=== PATIENT | female | born 1975 | race Caucasian/White ===

== ENCOUNTER → 2018-02-25 | Outpatient (CLI) | payer BC ==
[~2018-02-25] MED LIST: BARIUM SUSPENSION 105% (LIQUID POLIBAR PLUS) 240 ML/DOSE PO ONE; BARIUM SUSPENSION 60% (LIQUID EZ PAQUE) 240 ML DOSE PO ONE; ONDA-42 SL; OSLT75CRX PO
--- NOTE | 2018-02-25 11:42 | Diagnostic Imaging Report ---
INDICATION: Preop for gastric sleeve procedure and reflux. TECHNIQUE: Patient ingested effervescent crystals as well as thin and thick barium and imaging of the esophagus, stomach and proximal small bowel was performed. FINDINGS: The esophagus has a smooth contour. No mass or stricture was identified. There was a very small sliding-type hiatal hernia. No significant gastroesophageal reflux was demonstrated. The stomach has normal configuration. There is prompt emptying into the small bowel. The duodenal bulb is without deformity. IMPRESSION: Small sliding-type hiatal hernia. The study is otherwise unremarkable. Dictated by: Dictated on workstation # [id number]
== END ==
LOC: RAD 08:54
PROVIDERS: ATTEND Surgery
DX: K44.9 Diaphragmatic hernia without obstruction or gangrene (principal); Z98.84 Bariatric surgery status
CPT/HCPCS: 74241

== ENCOUNTER → 2018-03-29 | Outpatient (CLI) | payer BC ==
[~2018-03-29] MED LIST changes: -BARIUM SUSPENSION 105% (LIQUID POLIBAR PLUS) 240 ML/DOSE PO ONE; -BARIUM SUSPENSION 60% (LIQUID EZ PAQUE) 240 ML DOSE PO ONE
--- NOTE | 2018-03-29 13:05 | Diagnostic Imaging Report ---
INDICATION: Remote history of fracture with ankle pain. FINDINGS: There is abnormal widening of the ankle mortise laterally. Ligamentous disruption could not be excluded. Flagler stress views may be of benefit as well as a nonemergent MRI. An unhealed fracture is not identified. The plafond and talar dome are intact. IMPRESSION: There is abnormal widening of the ankle mortise laterally with ligamentous injury not excluded. No acute bony abnormality or unhealed fracture, however, is demonstrated. Dictated by: Dictated on workstation # [id number]
== END ==
LOC: RAD 12:15
PROVIDERS: ATTEND Nurse Practitioner Community Health
DX: M25.571 Pain in right ankle and joints of right foot (principal); Z87.81 Personal history of (healed) traumatic fracture
CPT/HCPCS: 73610

== ENCOUNTER 2019-12-01 10:45 | Outpatient (CLI) | payer BC ==
[~2019-12-01] VITALS: Ht 152.4 cm; Wt 79.5 kg
[~2019-12-01 10:45] MED LIST changes: +PHEN-483 PO
== END 2019-12-01 11:03 | disposition home or self-care (01) ==
LOC: PREOP 10:45
PROVIDERS: ATTEND Specialist
DX: Z01.818 Encounter for other preprocedural examination (principal)

== ENCOUNTER 2019-12-02 08:26 | Day surgery (SDC) | payer BC ==
[~2019-12-02] VITALS: Ht 152.4 cm; Wt 79.5 kg
[2019-12-02 08:55] VITALS: BP 143/83
[2019-12-02] MEDS: TETRACAINE 0.5% OPHTH SOLN 4 ML BTL (SINGLE DOSE ONLY) OU PRN ×4 (09:00→09:23)
[2019-12-02] MEDS ORDERED: LIDOCAINE PF 1% 2 ML VIAL IR PRN (09:00)
[2019-12-02] MEDS ORDERED: MOXIFLOXACIN OPHTH SOLN 5 MG/ML 0.3 ML SYRINGE OP ONE (09:00)
[2019-12-02] MEDS ORDERED: TIMOLOL MALEATE 0.5% 5 ML (TIMOPTIC) BTL OU PRN (09:00)
[2019-12-02] MEDS ORDERED: POVIDONE (BETADINE) OPHTH SOLN 5% 30 ML OP ONE (09:00)
[2019-12-02] MEDS: CYCLOPENTOLATE 1% (CYCLOGYL) 2 ML DROPS OP SCH ×3 (09:09→09:23)
[2019-12-02] MEDS: PHENYLEPHRINE 10% OPHTH (NEO-SYN) 5 ML BTL OU SCH ×3 (09:09→09:23)
--- NOTE | 2019-12-02 09:55 | Ophthalmologist Pre-Op Note ---
Pre-Operative Progress Note H&P Reviewed The H&P was reviewed, patient examined and no changes noted. Date H&P Reviewed: Dec 02, 2019 Time H&P Reviewed: 09:55 Pre-Op Dx Cataract, Right Eye CAROL PARHAM MD Dec 02, 2019 09:55
[2019-12-02] MEDS ORDERED: acetaZOLAMIDE ER 500 MG CAP (DIAMOX SEQUELS) PO ONE (10:00)
[2019-12-02] MEDS ORDERED: MIDAZOLAM 2 MG/2 ML (VERSED) VIAL ONE (10:06)
--- NOTE | 2019-12-02 10:26 | Ophthalmology Operative Report ---
Cataract removal/placement IOL PREOPERATIVE DIAGNOSIS: Cataract Right Eye POSTOPERATIVE DIAGNOSIS: Cataract Right Eye PROCEDURE: Cataract removal and placement of posterior chamber implant, right eye SURGEON: Bennie Parham ANESTHESIA: Topical with sedation COMPLICATIONS: None ESTIMATED BLOOD LOSS: Minimal DESCRIPTION OF PROCEDURE: After proper informed consent was obtained, the patient, a 44 female, was taken to the Operating Room and the right eye was anesthetized with tetracaine. The right eye was then prepped and draped in the usual manner. A wire lid speculum was placed. A paracentesis was made at the left hand position. Preservative free lidocaine was injected into the anterior chamber followed by viscoelastic. A clear corneal incision was made in the temporal position. A capsulorrhexis was preformed and the central nuclear and cortical material were removed. The posterior capsule was polished and Shiraz 19.0 AU00T0 IOL was placed into the capsular bag. The residual viscoelastic was aspirated and balanced saline solution was injected into the anterior chamber. Moxifloxacin was injected into the anterior chamber. The wound was checked and found to be water tight. The patient tolerated the procedure well without complications. BENNIE PARHAM MD Dec 02, 2019 10:26
[2019-12-02 10:33] VITALS: BP 132/95
--- NOTE | 2019-12-02 14:16 | Anesthesia-General Post-Op ---
MAC Patient Condition Mental Status/LOC: Same as Preop Cardiovascular: Satisfactory Nausea/Vomiting: Absent Respiratory: Satisfactory Pain: Controlled Complications: Absent Post Op Complications Complications None Follow Up Care/Instructions Patient Instructions None needed. Anesthesiology Discharge Order Discharge Order Patient is doing well, no complaints, stable vital signs, no apparent adverse anesthesia problems. No complications reported per nursing. LAZARO PRINCE CRNA Dec 02, 2019 14:16
== END 2019-12-02 10:32 | disposition home or self-care (01) ==
LOC: SDC 08:26
PROVIDERS: ATTEND Specialist
DX: H25.11 Age-related nuclear cataract, right eye (principal); F41.9 Anxiety disorder, unspecified; Z79.899 Other long term (current) drug therapy; Z90.710 Acquired absence of both cervix and uterus; Z83.3 Family history of diabetes mellitus; Z80.1 Family history of malignant neoplasm of trachea, bronchus and lung

== ENCOUNTER → 2021-04-16 | Outpatient (CLI) | payer BC ==
--- NOTE | 2021-04-16 11:21 | Diagnostic Imaging Report ---
PROCEDURE: MRI left joint lower extremity without contrast. TECHNIQUE: Multiplanar, multisequence non contrast-enhanced MRI of the left lower extremity was accomplished. INDICATION: Fell knee pain There are no prior studies available for comparison. This exam is less than optimal due to mild motion artifact. The proton sagittal series reveals that the anterior cruciate ligament is poorly visualized. I suspect the ACL is at least partially if not completely torn. Posterior cruciate ligament, quadriceps and infrapatellar tendons, the collateral ligaments, the biceps femoris tendon and iliotibial band of the medial and lateral retinaculum show no sign of an acute injury. There is increased signal in the posterior horn of the medial meniscus. This does suggest a tear. The lateral meniscus seems intact. There is no abnormal signal arising from the osseous structures to suggest bone edema or fracture. There does appear to be moderate degenerative disease of all 3 compartments of the knee joint. There is a small joint effusion present and there is also mild edema/inflammation of the soft tissues along the anterior aspect of the knee joint. A small Arshad's cyst is noted as well. Impression: 1. The indistinct appearance of the anterior cruciate ligament would indicate that the ACL is at least partially if not completely torn. The posterior horn of the medial meniscus is also torn. 2. The other major ligaments and tendons and the lateral meniscus show no sign of an acute injury. 3. There is no evidence for a fracture. There is moderate degenerative disease of all 3 compartments of the knee joint. 4. There is a small joint effusion present as well as edema/inflammation along the anterior aspect of the knee joint. Dictated by: Dictated on workstation # [id number]
== END ==
LOC: RAD 08:18
PROVIDERS: ATTEND Family Medicine
DX: S83.242A Other tear of medial meniscus, current injury, left knee, initial encounter (principal); M17.12 Unilateral primary osteoarthritis, left knee; W19.XXXA Unspecified fall, initial encounter
CPT/HCPCS: 73721

== ENCOUNTER → 2021-05-23 | Outpatient (CLI) | payer BC ==
[~2021-05-23] VITALS: Ht 180.3 cm; Wt 88.5 kg
[~2021-05-23] MED LIST changes: +CASIRIVIMAB/IMDEVIMAB 1,200 MG in NS (IVPB) 250 ML IV ONE; +EPINEPHrine INJECTION 1 MG/ML AMP IM PRN; +diphenhydrAMINE 50 MG/ML INJ (BENADRYL) IV PRN
[2021-05-23 08:59] VITALS: BP 153/83
[2021-05-23 10:28] VITALS: BP 129/70
== END ==
LOC: INFUSION 09:02
PROVIDERS: ATTEND Nurse Practitioner Family
DX: Z23 Encounter for immunization (principal); U07.1 COVID-19

== ENCOUNTER 2022-02-28 11:15 | Emergency (ER) | payer BC ==
[~2022-02-28] VITALS: Ht 152.4 cm; Wt 92.9 kg
[~2022-02-28 11:15] MED LIST changes: -CASIRIVIMAB/IMDEVIMAB 1,200 MG in NS (IVPB) 250 ML IV ONE; -EPINEPHrine INJECTION 1 MG/ML AMP IM PRN; -diphenhydrAMINE 50 MG/ML INJ (BENADRYL) IV PRN
[2022-02-28 11:37] LABS: BASOPHILS % (AUTO) 1 % (0-10); EOSINOPHILS # (AUTO) 0.1 10^3/uL (0.0-0.3); EOSINOPHILS % (AUTO) 2 % (0-10); HEMATOCRIT 46 % (35-52); HEMOGLOBIN 15.1 g/dL (11.5-16.0); LYMPHOCYTES # (AUTO) 2.6 10^3/uL (1.0-4.0); LYMPHOCYTES % (AUTO) 39 % (12-44); MEAN CORPUSCULAR HEMOGLOBIN 29 pg (25-34); MEAN CORPUSCULAR HGB CONC 33 g/dL (32-36); MEAN CORPUSCULAR VOLUME 89 fL (80-99); MONOCYTES # (AUTO) 0.7 10^3/uL (0.0-1.0); MONOCYTES % (AUTO) 11 % (0-12); NEUTROPHILS # (AUTO) 3.2 10^3/uL (1.8-7.8); NEUTROPHILS % (AUTO) 48 % (42-75); PLATELET COUNT 268 10^3/uL (130-400); WHITE BLOOD COUNT 6.7 10^3/uL (4.3-11.0)
--- NOTE | 2022-02-28 11:38 | ED General ---
General Chief Complaint: Cardiac/General Problems Stated Complaint: HIGH BP 220/140 Nursing Triage Note: PT AMB TO RM 5 AFTER BEING SENT BY DR BRITTON FOR FURTHER EVALUATION OF HIGH BLOOD PRESSURE. PT STATES SHES BEEN OUT OF HER LISINIPRIL FOR 3 MONTHS. STATES A FEW DAYS AGO SHE STARTED FEELING FLUSHED. STATES BP AT HOME WAS IN THE 180s. STATES WHEN SHE WENT TO URGENT CARE SHE WAS IN THE 200s. GIVEN 4 BABY ASA AND METOPROLOL AT . Source of Information: Patient Exam Limitations: No Limitations History of Present Illness Date Seen by Provider: Feb 28, 2022 Time Seen by Provider: 11:25 Initial Comments Patient is a 46-year-old female who presents to the emergency room with concerns for elevated blood pressure. Patient states that she feels flushed and not quite herself. She went to urgent care with these complaints and was sent to the emergency department for further evaluation. Reportedly the patient was given 4 baby aspirin and some metoprolol at urgent care. She tells me that she has been out of her lisinopril for about 3 months. She just "got busy". She states she is only been diagnosed with hypertension within the last year. She sees Dr. Jean-Claude Britton and the medications have been dispensed out of clinic. She occasionally has some sharp left-sided chest pains and left wrist pain that come and go at random. She is not short of breath or currently having chest pain. She denies headache visual changes. No strokelike symptoms. No problems with urination or decreased frequency. No chronic swelling in her lower extremities. She does have chronic headaches that have not changed in nature over recent weeks. No recent infectious complaints. No problems with urination or bowels. No other daily medications prescribed. She does have a family history of coronary artery disease in her mother. Patient is not a smoker. All other review of systems reviewed and negative except as stated Timing/Duration: Other (weeks) Associated Systoms: Chest Pain (occasional sharp left sided pains) Allergies and Home Medications Allergies Coded Allergies: NKANo Known Allergies (Verified Allergy, Unknown, 02/16/06) Patient Home Medication List Home Medication List Reviewed: Yes Phentermine HCl (Phentermine HCl) 37.5 Mg Capsule, 37.5 MG PO DAILY, (Reported) Entered as Reported by: ANDRY BETANCUR on 12/01/19 1041 Review of Systems Review of Systems Constitutional: see HPI EENTM: no symptoms reported Respiratory: no symptoms reported Cardiovascular: chest pain (ocasional sharp) Gastrointestinal: no symptoms reported Genitourinary: no symptoms reported Musculoskeletal: no symptoms reported Skin: no symptoms reported Psychiatric/Neurological: No Symptoms Reported All Other Systems Reviewed Negative Unless Noted: Yes Past Nxcojts-Kmbffc-Xlpuco Hx Patient Social History Tobacco Use?: No Use of E-Cig and/or Vaping dev: No Substance use?: No Alcohol Use?: No Pt feels they are or have been: No Immunizations Up To Date Influenza Vaccine Up-to-Date: No; Not Current Past Medical History Hysterectomy Reproductive Disorders: No 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 oz. 97.299403ar; 39.00 BMI Method: General Appearance: No Apparent Distress, WD/WN Eyes: Bilateral Eye Normal Inspection, Bilateral Eye PERRL, Bilateral Eye EOMI HEENT: PERRL/EOMI Neck: Full Range of Motion, Normal Inspection Respiratory: Lungs Clear, Normal Breath Sounds, No Accessory Muscle Use, No Respiratory Distress Cardiovascular: Regular Rate, Rhythm (90's), Normal Peripheral Pulses Gastrointestinal: Non Tender, Soft Extremity: Normal Inspection, Normal Range of Motion, No Pedal Edema Neurologic/Psychiatric: Alert, Oriented x3, No Motor/Sensory Deficits, Normal Mood/Affect, high reach operator II-XII Norm as Tested Skin: Normal Color, Warm/Dry Progress/Results/Core Measures Suspected Sepsis SIRS Temperature: Pulse: 94 Respiratory Rate: 17 Laboratory Tests 02/28/22 11:27: White Blood Count 6.7 Blood Pressure 207 /131 Mean: 156 Laboratory Tests 02/28/22 11:27: Creatinine 0.69, Platelet Count 268, Total Bilirubin 0.4 Results/Orders Lab Results Laboratory Tests Test 02/28/22 11:27 02/28/22 11:39 Range/Units White Blood Count 6.7 4.3-11.0 10^3/uL Red Blood Count 5.16 H 3.80-5.11 10^6/uL Hemoglobin 15.1 11.5-16.0 g/dL Hematocrit 46 35-52 % Mean Corpuscular Volume 89 80-99 fL Mean Corpuscular Hemoglobin 29 25-34 pg Mean Corpuscular Hemoglobin Concent 33 32-36 g/dL Red Cell Distribution Width 13.2 10.0-14.5 % Platelet Count 268 130-400 10^3/uL Mean Platelet Volume 9.0 9.0-12.2 fL Immature Granulocyte % (Auto) 1 % Neutrophils (%) (Auto) 48 42-75 % Lymphocytes (%) (Auto) 39 12-44 % Monocytes (%) (Auto) 11 0-12 % Eosinophils (%) (Auto) 2 0-10 % Basophils (%) (Auto) 1 0-10 % Neutrophils # (Auto) 3.2 1.8-7.8 10^3/uL Lymphocytes # (Auto) 2.6 1.0-4.0 10^3/uL Monocytes # (Auto) 0.7 0.0-1.0 10^3/uL Eosinophils # (Auto) 0.1 0.0-0.3 10^3/uL Basophils # (Auto) 0.0 0.0-0.1 10^3/uL Immature Granulocyte # (Auto) 0.0 0.0-0.1 10^3/uL Sodium Level 138 135-145 MMOL/L Potassium Level 3.9 3.6-5.0 MMOL/L Chloride Level 104 98-107 MMOL/L Carbon Dioxide Level 22 21-32 MMOL/L Anion Gap 12 5-14 MMOL/L Blood Urea Nitrogen 10 7-18 MG/DL Creatinine 0.69 0.60-1.30 MG/DL Estimat Glomerular Filtration Rate 108 BUN/Creatinine Ratio 14 Glucose Level 103 70-105 MG/DL Calcium Level 9.2 8.5-10.1 MG/DL Corrected Calcium 9.4 8.5-10.1 MG/DL Total Bilirubin 0.4 0.1-1.0 MG/DL Aspartate Amino Transf (AST/SGOT) 17 5-34 U/L Alanine Aminotransferase (ALT/SGPT) 22 0-55 U/L Alkaline Phosphatase 59 40-136 U/L Total Protein 7.2 6.4-8.2 GM/DL Albumin 3.8 3.2-4.5 GM/DL Urine Color YELLOW Urine Clarity CLEAR Urine pH 7.0 5-9 Urine Specific [place] 1.015 L 1.016-1.022 Urine Protein NEGATIVE NEGATIVE Urine Glucose (UA) NEGATIVE NEGATIVE Urine Ketones NEGATIVE NEGATIVE Urine Nitrite NEGATIVE NEGATIVE Urine Bilirubin NEGATIVE NEGATIVE Urine Urobilinogen 0.2 < = 1.0 MG/DL Urine Leukocyte Esterase 2+ H NEGATIVE Urine RBC (Auto) TRACE-I H NEGATIVE Urine RBC 0-2 /HPF Urine WBC 10-25 H /HPF Urine Squamous Epithelial Cells 10-25 H /HPF Urine Crystals YES /LPF Urine Amorphous Sediment FEW YOEL PHOSPHATE H /LPF Urine Bacteria MODERATE H /HPF Urine Casts NONE /LPF Urine Mucus SMALL H /LPF Urine Other CLUE CELLS /HPF Urine Culture Indicated YES My Orders Orders - DAVIDE CHIN MD Ed Iv/Invasive Line Start (02/28/22 11:32) Cbc With Automated Diff (02/28/22 11:32) Comprehensive Metabolic Panel (02/28/22 11:32) Ua Culture If Indicated (02/28/22 11:32) Ekg Tracing (02/28/22 11:32) Chest 1 View, Ap/Pa Only (02/28/22 11:32) Clonidine Tablet (Catapres Tablet) (02/28/22 11:45) Urine Culture (02/28/22 11:39) Medications Given in ED Current Medications Medications Dose Ordered Sig/Bina Route Start Time Stop Time Status Last Admin Dose Admin Clonidine HCl 0.1 mg ONCE ONCE PO 02/28/22 11:45 02/28/22 11:46 DC 02/28/22 11:39 0.1 MG Vital Signs/I&O 02/28/22 11:20 Temp 36.6 Pulse 94 Resp 17 B/P (MAP) 207/131 (156) Pulse Ox 98 O2 Delivery Room Air Capillary Refill : Less Than 3 Seconds Blood Pressure Mean: 156 Progress Note : Time: 12:23 Progress Note Patient reevaluated after her 0.1 mg of clonidine and screening labs, EKG and chest x-ray. Labs have been reviewed and are all within normal limits. Chest x-ray looks good. EKG is unremarkable. Patient's diastolic blood pressure is down to about 98. She feels better. I discussed with her the importance of compliance with blood pressure medications and we talked about repercussions of uncontrolled high blood pressure. I strongly encouraged her to follow-up with her primary care physician and maintain compliance with the medications. She verbalized understanding. All questions have been sought and answered. Patient is stable, improved for discharge. ECG Initial ECG Impression Date: Feb 28, 2022 Initial ECG Impression Time: 11:25 Initial ECG Rate: 90 Initial ECG Rhythm: Normal Sinus Initial ECG Intervals: Normal Initial ECG Impression: Nonspecific Changes Comment Nonspecific ST-T wave changes inferiorly, Q waves noted in lead III. No ectopy. Diagnostic Imaging Diagonstic Imaging: Xray Plain Films/CT/US/NM/MRI: chest Comments [facility]. [place], [place] NAME: PIYUSH GONZALEZ [facility] REC#: [id number] PT STATUS: REG ER : 1975 PHYSICIAN: DAIVDE CHIN MD ADMIT DATE: 02/28/22/ER Draft Date of Exam:02/28/22 CHEST 1 VIEW, AP/PA ONLY Indication: Hypertensive patient. I have no priors. Findings: Heart size within normal limits. There is some prominence of the central vascularity. No focal pulmonary consolidation, pneumonia, effusion or pneumothorax. Impression: 1. No focal infiltrate or acute pleural pathology. Normal heart size but prominence of the central venous structures. 2. No free air beneath the diaphragm. Dictated on workstation # [id number] Dict: 02/28/22 1212 Trans: 02/28/22 1214 CV [id number] Interpreted by: JUAN JOSÉ JURADO Electronically signed by: Departure Impression Primary Impression: Hypertension Qualified Codes: I10 - Essential (primary) hypertension Disposition: 01 HOME, SELF-CARE Condition: Improved Departure-Patient Inst. Decision time for Depature: 12:27 Referrals: JEAN-CLAUDE BRITTON DO (PCP/Family) Primary Care Physician Patient Instructions: High Blood Pressure in Adults Add. Discharge Instructions: Please start taking the lisinopril, 20 mg daily tomorrow. Keep a log of your blood pressures daily at random times of the day. Call your primary care doctor's office for a follow-up appointment to review these and for further blood pressure management. If you develop severe headache, chest pain, shortness of breath or any other emergent concerning symptoms please come back to the emergency department for reevaluation. Scripts Lisinopril (Lisinopril) 20 Mg Tablet 20 MG PO DAILY for 30 Days, #30 TAB Prov: DAVIDE CHIN MD 02/28/22 DAVIDE CHIN MD Feb 28, 2022 11:38
[2022-02-28 11:45] LABS: BILIRUBIN,URINE NEGATIVE (NEGATIVE); CLARITY,URINE CLEAR; COLOR,URINE YELLOW; GLUCOSE, URINE (UA) NEGATIVE (NEGATIVE); KETONES,URINE NEGATIVE (NEGATIVE); LEUKOCYTE ESTERASE ,URINE 2+ (NEGATIVE); NITRITE,URINE NEGATIVE (NEGATIVE); PROTEIN,URINE NEGATIVE (NEGATIVE)
[2022-02-28 11:45] LABS: ALBUMIN 3.8 GM/DL (3.2-4.5); POTASSIUM 3.9 MMOL/L (3.6-5.0)
[2022-02-28] MEDS ORDERED: cloNIDine 0.1 MG (CATAPRES) TAB PO ONE (11:45)
[2022-02-28 11:46] LABS: CALCIUM 9.2 MG/DL (8.5-10.1)
[2022-02-28 11:47] LABS: TOTAL PROTEIN 7.2 GM/DL (6.4-8.2)
[2022-02-28 11:49] LABS: BILIRUBIN,TOTAL 0.4 MG/DL (0.1-1.0)
[2022-02-28 11:51] LABS: CREATININE SERUM 0.69 MG/DL (0.60-1.30)
--- NOTE | 2022-02-28 12:15 | Diagnostic Imaging Report ---
Indication: Hypertensive patient. I have no priors. Findings: Heart size within normal limits. There is some prominence of the central vascularity. No focal pulmonary consolidation, pneumonia, effusion or pneumothorax. Impression: 1. No focal infiltrate or acute pleural pathology. Normal heart size but prominence of the central venous structures. 2. No free air beneath the diaphragm. Dictated by: Dictated on workstation # [id number]
[2022-02-28 12:16] LABS: AMORPHOUS SEDIMENT,UR FEW AMOR PHOSPHATE /LPF; BACTERIA,URINE MODERATE /HPF; RBC,URINE 0-2 /HPF
[2022-02-28 12:17] LABS: URINE OTHER CLUE CELLS /HPF
[2022-02-28] MEDS ORDERED: LISI20TA26 PO (12:29)
[2022-02-28 12:43] VITALS: BP 170/82
== END 2022-02-28 12:43 | disposition home or self-care (01) ==
LOC: EDUNIT# 11:15 → ER 11:16
DX: I10 Essential (primary) hypertension (principal); Z91.14 Patient's other noncompliance with medication regimen
CPT/HCPCS: 36415; 71045; 80053; 81000; 85025; 87088; 93005

== ENCOUNTER 2022-10-13 15:45 | Emergency (ER) | payer BC ==
[~2022-10-13] VITALS: Ht 152 cm; Wt 88.0 kg
[~2022-10-13 15:45] MED LIST changes: +LISI20TA26 PO
--- NOTE | 2022-10-13 16:27 | ED Abdominal Pain ---
General Chief Complaint: Abdominal/GI Problems Stated Complaint: ABD PAIN Nursing Triage Note: PT CO OF ABD PAIN STARTED APPROX 1 HOUR AGO. PT CO OF NAUSEA. Source of Information: Patient Exam Limitations: No Limitations History of Present Illness Date Seen by Provider: Oct 13, 2022 Time Seen by Provider: 16:25 Initial Comments To ER with sudden onset right-sided lower abdominal pain that began 1 hour ago associated with nausea and vomiting. The pain has subsequently eased currently rated at 4 out of 10 though still present and it is waxing and waning in intensity. Timing/Duration: 1 Hour Severity/Quality: Moderate Location: RLQ Radiation: No Radiation Activities at Onset: None Associated Symptoms: Nausea/Vomiting Allergies and Home Medications Allergies Coded Allergies: NKANo Known Allergies (Verified Allergy, Unknown, 02/16/06) Patient Home Medication List Home Medication List Reviewed: Yes Cephalexin (Cephalexin) 500 Mg Tablet, 500 MG PO TID Prescribed by: CARLOS DELGADILLO on 10/13/22 1710 Lisinopril (Lisinopril) 20 Mg Tablet, 20 MG PO DAILY Prescribed by: DAVIDE CHIN on 02/28/22 1229 Phentermine HCl (Phentermine HCl) 37.5 Mg Capsule, 37.5 MG PO DAILY, (Reported) Entered as Reported by: ANDRY BETANCUR on 12/01/19 1045 Review of Systems Review of Systems Constitutional: see HPI EENTM: No Symptoms Reported Respiratory: No Symptoms Reported Cardiovascular: No Symptoms Reported Gastrointestinal: See HPI, Abdominal Pain, Nausea Genitourinary: No Symptoms Reported Musculoskeletal: no symptoms reported Skin: no symptoms reported Psychiatric/Neurological: No Symptoms Reported Endocrine: No Symptoms Reported Hematologic/Lymphatic: No Symptoms Reported Past Bflorsp-Fijoyo-Sejfpu Hx Patient Social History Tobacco Use?: No Substance use?: No Alcohol Use?: No Pt feels they are or have been: No Immunizations Up To Date Influenza Vaccine Up-to-Date: No; Not Current Past Medical History Surgery/Hospitalization HX: HYST, R EYE CATERACT, NOSE HTN Hysterectomy 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 oz. 97.915896bm; 38.00 BMI Method: General Appearance: WD/WN, no apparent distress HEENT: PERRL/EOMI, normal ENT inspection Neck: non-tender, full range of motion Respiratory: no respiratory distress, no accessory muscle use Cardiovascular: regular rate, rhythm, no murmur Gastrointestinal: normal bowel sounds, soft, tenderness Extremities: normal range of motion, non-tender Neurologic/Psychiatric: alert, normal mood/affect, oriented x 3 Skin: normal color, warm/dry Progress/Results/Core Measures Results/Orders Lab Results Laboratory Tests Test 10/13/22 16:24 10/13/22 16:38 Range/Units White Blood Count 9.6 4.3-11.0 10^3/uL Red Blood Count 4.62 3.80-5.11 10^6/uL Hemoglobin 13.8 11.5-16.0 g/dL Hematocrit 42 35-52 % Mean Corpuscular Volume 91 80-99 fL Mean Corpuscular Hemoglobin 30 25-34 pg Mean Corpuscular Hemoglobin Concent 33 32-36 g/dL Red Cell Distribution Width 14.8 H 10.0-14.5 % Platelet Count 286 130-400 10^3/uL Mean Platelet Volume 8.7 L 9.0-12.2 fL Immature Granulocyte % (Auto) 0 % Neutrophils (%) (Auto) 62 42-75 % Lymphocytes (%) (Auto) 30 12-44 % Monocytes (%) (Auto) 6 0-12 % Eosinophils (%) (Auto) 1 0-10 % Basophils (%) (Auto) 0 0-10 % Neutrophils # (Auto) 6.0 1.8-7.8 10^3/uL Lymphocytes # (Auto) 2.9 1.0-4.0 10^3/uL Monocytes # (Auto) 0.6 0.0-1.0 10^3/uL Eosinophils # (Auto) 0.1 0.0-0.3 10^3/uL Basophils # (Auto) 0.0 0.0-0.1 10^3/uL Immature Granulocyte # (Auto) 0.0 0.0-0.1 10^3/uL Sodium Level 137 135-145 MMOL/L Potassium Level 4.0 3.6-5.0 MMOL/L Chloride Level 106 98-107 MMOL/L Carbon Dioxide Level 24 21-32 MMOL/L Anion Gap 7 5-14 MMOL/L Blood Urea Nitrogen 17 7-18 MG/DL Creatinine 0.82 0.60-1.30 MG/DL Estimat Glomerular Filtration Rate 89 BUN/Creatinine Ratio 21 Glucose Level 86 70-105 MG/DL Calcium Level 9.0 8.5-10.1 MG/DL Corrected Calcium 9.2 8.5-10.1 MG/DL Total Bilirubin 0.3 0.1-1.0 MG/DL Aspartate Amino Transf (AST/SGOT) 16 5-34 U/L Alanine Aminotransferase (ALT/SGPT) 14 0-55 U/L Alkaline Phosphatase 41 40-136 U/L Total Protein 6.8 6.4-8.2 GM/DL Albumin 3.8 3.2-4.5 GM/DL Urine Color YELLOW Urine Clarity CLOUDY Urine pH 6.5 5-9 Urine Specific [place] 1.025 H 1.016-1.022 Urine Protein NEGATIVE NEGATIVE Urine Glucose (UA) NEGATIVE NEGATIVE Urine Ketones TRACE H NEGATIVE Urine Nitrite NEGATIVE NEGATIVE Urine Bilirubin NEGATIVE NEGATIVE Urine Urobilinogen 0.2 < = 1.0 MG/DL Urine Leukocyte Esterase 1+ H NEGATIVE Urine RBC (Auto) NEGATIVE NEGATIVE Urine RBC NONE /HPF Urine WBC 2-5 /HPF Urine Squamous Epithelial Cells 0-2 /HPF Urine Renal Epithelial Cells NONE /HPF Urine Crystals NONE /LPF Urine Bacteria LARGE H /HPF Urine Casts NONE /LPF Urine Mucus NEGATIVE /LPF Urine Culture Indicated YES My Orders Orders - CARLOS DELGADILLO APRN Cbc With Automated Diff (10/13/22 16:23) Comprehensive Metabolic Panel (10/13/22 16:23) Ua Culture If Indicated (10/13/22 16:23) Ed Iv/Invasive Line Start (10/13/22 16:23) Ct Abd/Pelvis Wo(Kidney Stone) (10/13/22 16:23) Ketorolac Injection (Toradol Injection) (10/13/22 16:30) Ondansetron Injection (Zofran Injectio (10/13/22 16:30) Ns Iv 1000 Ml (Sodium Chloride 0.9%) (10/13/22 16:30) Urine Culture (10/13/22 16:38) Promethazine Injection (Phenergan Injec (10/13/22 17:15) Cephalexin Capsule (Keflex Capsule) (10/13/22 17:15) Medications Given in ED Current Medications Medications Dose Ordered Sig/Bina Route Start Time Stop Time Status Last Admin Dose Admin Ketorolac Tromethamine 15 mg ONCE ONCE IVP 10/13/22 16:30 10/13/22 16:31 DC 10/13/22 16:31 15 MG Ondansetron HCl 8 mg ONCE ONCE IVP 10/13/22 16:30 10/13/22 16:31 DC 10/13/22 16:31 8 MG Promethazine HCl 12.5 mg ONCE ONCE IVP 10/13/22 17:15 10/13/22 17:16 DC 10/13/22 17:19 12.5 MG Vital Signs/I&O 10/13/22 16:03 Temp 36.5 Pulse 95 Resp 18 B/P (MAP) 152/90 (110) Pulse Ox 98 Blood Pressure Mean: 110 Departure Communication (Admissions) NAME: PIYUSH GONZALEZ MED REC#: [id number] PT STATUS: REG ER : 1975 PHYSICIAN: CARLOS DELGADILLO APRN ADMIT DATE: 10/13/22/ER Draft Date of Exam:10/13/22 CT ABD/PELVIS WO(KIDNEY STONE) EXAMINATION: CT abdomen and pelvis without contrast. TECHNIQUE: Multiple contiguous axial images were obtained through the abdomen and pelvis without the use of intravenous contrast. All CT scans use one or more of the following dose optimizing techniques: automated exposure control, MA and/or KvP adjustment based on patient size and exam type or iterative reconstruction. HISTORY: Right lower quadrant pain COMPARISON: None available. FINDINGS: Limited views of the lower thorax are unremarkable. The liver is normal without focal lesion. There is no biliary ductal dilation. Gallbladder is normal. Pancreas is normal. Spleen is normal. Adrenal glands are normal. The kidneys are normal. There is no hydronephrosis. Urinary bladder is normal. No renal or ureteral stones. Bowel is normal in caliber without obstruction or inflammation. The appendix is normal. No free fluid or air. No abdominal or pelvic lymphadenopathy. Aorta is normal in caliber without aneurysm. There are no suspicious osseus lesions. IMPRESSION: 1. No acute abnormality in the abdomen or pelvis. Dictated on workstation # [id number] Dict: 10/13/22 1659 Trans: 10/13/22 1702 CV [id number] Interpreted by: LACY PASCUAL MD Electronically signed by: Impression Primary Impression: Abdominal pain Disposition: HOME, SELF-CARE Condition: Improved Departure-Patient Inst. Decision time for Depature: 17:07 Referrals: ALONSO BRITTON DO (PCP/Family) Primary Care Physician Patient Instructions: Urinary Tract Infection, Adult (DC) Add. Discharge Instructions: 1. Antibiotic as directed. Return to ER for any concerns. All discharge instructions reviewed with patient and/or family. Voiced understanding. Scripts Cephalexin (Cephalexin) 500 Mg Tablet 500 MG PO TID, #15 TAB Prov: CARLOS DELGADILLO APRN 10/13/22 CARLOS DELGADILLO APRN Oct 13, 2022 16:27
[2022-10-13 16:30] LABS: BASOPHILS % (AUTO) 0 % (0-10); EOSINOPHILS # (AUTO) 0.1 10^3/uL (0.0-0.3); EOSINOPHILS % (AUTO) 1 % (0-10); HEMATOCRIT 42 % (35-52); HEMOGLOBIN 13.8 g/dL (11.5-16.0); LYMPHOCYTES # (AUTO) 2.9 10^3/uL (1.0-4.0); LYMPHOCYTES % (AUTO) 30 % (12-44); MEAN CORPUSCULAR HEMOGLOBIN 30 pg (25-34); MEAN CORPUSCULAR HGB CONC 33 g/dL (32-36); MEAN CORPUSCULAR VOLUME 91 fL (80-99); MEAN PLATELET VOLUME 8.7 fL (9.0-12.2); MONOCYTES # (AUTO) 0.6 10^3/uL (0.0-1.0); MONOCYTES % (AUTO) 6 % (0-12); NEUTROPHILS % (AUTO) 62 % (42-75); PLATELET COUNT 286 10^3/uL (130-400); WHITE BLOOD COUNT 9.6 10^3/uL (4.3-11.0)
[2022-10-13] MEDS ORDERED: KETOROLAC 30 MG/ML VIAL IVP ONE (16:30)
[2022-10-13] MEDS ORDERED: ONDANSETRON 4 MG/2 ML (SDV) Z0FRAN IVP ONE (16:30)
[2022-10-13] MEDS ORDERED: NS IV 1000 ML 1,000 ML IV SCH (16:30)
[2022-10-13 16:41] LABS: ALBUMIN 3.8 GM/DL (3.2-4.5)
[2022-10-13 16:44] LABS: BILIRUBIN,URINE NEGATIVE (NEGATIVE); CLARITY,URINE CLOUDY; COLOR,URINE YELLOW; GLUCOSE, URINE (UA) NEGATIVE (NEGATIVE); KETONES,URINE TRACE (NEGATIVE); LEUKOCYTE ESTERASE ,URINE 1+ (NEGATIVE); NITRITE,URINE NEGATIVE (NEGATIVE); PH,URINE 6.5 (5-9); PROTEIN,URINE NEGATIVE (NEGATIVE)
[2022-10-13 16:44] LABS: TOTAL PROTEIN 6.8 GM/DL (6.4-8.2)
[2022-10-13 16:46] LABS: BILIRUBIN,TOTAL 0.3 MG/DL (0.1-1.0)
[2022-10-13 16:48] LABS: CREATININE SERUM 0.82 MG/DL (0.60-1.30)
--- NOTE | 2022-10-13 17:03 | Diagnostic Imaging Report ---
EXAMINATION: CT abdomen and pelvis without contrast. TECHNIQUE: Multiple contiguous axial images were obtained through the abdomen and pelvis without the use of intravenous contrast. All CT scans use one or more of the following dose optimizing techniques: automated exposure control, MA and/or KvP adjustment based on patient size and exam type or iterative reconstruction. HISTORY: Right lower quadrant pain COMPARISON: None available. FINDINGS: Limited views of the lower thorax are unremarkable. The liver is normal without focal lesion. There is no biliary ductal dilation. Gallbladder is normal. Pancreas is normal. Spleen is normal. Adrenal glands are normal. The kidneys are normal. There is no hydronephrosis. Urinary bladder is normal. No renal or ureteral stones. Bowel is normal in caliber without obstruction or inflammation. The appendix is normal. No free fluid or air. No abdominal or pelvic lymphadenopathy. Aorta is normal in caliber without aneurysm. There are no suspicious osseus lesions. IMPRESSION: 1. No acute abnormality in the abdomen or pelvis. Dictated by: Dictated on workstation # [id number]
[2022-10-13 17:04] LABS: BACTERIA,URINE LARGE /HPF; SQUAMOUS EPITHELIAL CELL,UR 0-2 /HPF
[2022-10-13] MEDS ORDERED: CEPH500T PO (17:10)
[2022-10-13] MEDS ORDERED: CEPHALEXIN 250 MG (KEFLEX) CAP PO SCH (17:15)
[2022-10-13] MEDS ORDERED: PROMETHAZINE INJ 25 MG/ML (PHENERGAN) AMP IVP ONE (17:15)
[2022-10-13 18:06] VITALS: BP 137/90
== END 2022-10-13 18:06 | disposition home or self-care (01) ==
LOC: EDUNIT# 15:45 → ER 15:47
DX: R10.31 Right lower quadrant pain (principal); Z28.310 Unvaccinated for COVID-19
CPT/HCPCS: 36415; 74176; 80053; 81000; 85025; 87088

== ENCOUNTER 2023-01-29 05:42 | Outpatient (CLI) | payer BC ==
[~2023-01-29] VITALS: Ht 152.4 cm; Wt 84.3 kg
[~2023-01-29 05:42] MED LIST changes: +CEPH500T PO
[2023-01-29] MEDS ORDERED: SEMA1PEN3 SQ (12:09)
[2023-01-29] MEDS ORDERED: METO-333 PO (12:09)
== END 2023-01-29 12:36 | disposition home or self-care (01) ==
LOC: PREOP 05:42
PROVIDERS: ATTEND Obstetrics & Gynecology
DX: Z01.818 Encounter for other preprocedural examination (principal)

== ENCOUNTER 2023-02-03 08:58 | Day surgery (SDC) | payer BC ==
[~2023-02-03] VITALS: Ht 152.4 cm; Wt 84.3 kg
[2023-02-03] VITALS (12 sets, daily range): BP systolic 77–127; BP diastolic 29–70
[~2023-02-03 08:58] MED LIST changes: +METO-333 PO; +SEMA1PEN3 SQ
[2023-02-03] MEDS ORDERED: LACTATED RINGERS 1,000 ML IV PRN (09:15)
[2023-02-03 09:37] LABS: BASOPHILS % (AUTO) 1 % (0-10); EOSINOPHILS # (AUTO) 0.1 10^3/uL (0.0-0.3); EOSINOPHILS % (AUTO) 2 % (0-10); HEMATOCRIT 45 % (35-52); HEMOGLOBIN 15.1 g/dL (11.5-16.0); LYMPHOCYTES # (AUTO) 2.7 10^3/uL (1.0-4.0); LYMPHOCYTES % (AUTO) 45 % (12-44); MEAN CORPUSCULAR HEMOGLOBIN 31 pg (25-34); MEAN CORPUSCULAR HGB CONC 34 g/dL (32-36); MEAN CORPUSCULAR VOLUME 91 fL (80-99); MEAN PLATELET VOLUME 9.6 fL (9.0-12.2); MONOCYTES # (AUTO) 0.5 10^3/uL (0.0-1.0); MONOCYTES % (AUTO) 8 % (0-12); NEUTROPHILS # (AUTO) 2.7 10^3/uL (1.8-7.8); NEUTROPHILS % (AUTO) 45 % (42-75); PLATELET COUNT 306 10^3/uL (130-400)
[2023-02-03] MEDS ORDERED: BUPIVACAINE 0.25% 30 ML (SENSORCAINE) VIAL ONE (10:00)
[2023-02-03] MEDS ORDERED: BUP/EPI 0.25% 1:200,000 (MARCAINE) 30 ML VIAL ONE (10:11)
[2023-02-03] MEDS ORDERED: ONDANSETRON 4 MG/2 ML (SDV) Z0FRAN ONE ×2 (10:17→12:51)
[2023-02-03] MEDS ORDERED: proPOfol 200 MG/20 ML (DIPRIVAN) VIAL IV ONE (10:17)
[2023-02-03] MEDS ORDERED: MIDAZOLAM 2 MG/2 ML (VERSED) VIAL ONE (10:17)
[2023-02-03] MEDS ORDERED: LIDOCAINE PF 2% 5 ML (XYLOCAINE) VIAL ONE (10:17)
[2023-02-03] MEDS ORDERED: fentaNYL INJ 100 MCG/2 ML AMP ONE (10:17)
[2023-02-03] MEDS ORDERED: ACHD5005 PO (10:19)
--- NOTE | 2023-02-03 10:19 | Discharge Inst-Women's Service ---
Discharge Inst-Women's Serv Depart Medication/Instructions New, Converted or Re-Newed RX: Transmitted to Pharmacy Problems Reviewed?: Yes Consults/Follow Up Additional Follow Up: Yes Orders/Referrals Dr. Woodward in 2 weeks Activity Activity: Activity as Tolerated Driving Instructions: No Driving for 1 Week NO SMOKING: NO SMOKING Nothing Inside Vagina: No Douching, No [place], No Tampons Diet Discharge Diet: No Restrictions Symptoms to Report to : Bleeding Excessive, Pain Increased, Fever Over 101 Degrees F, Vaginal Bleeding Increase, Questions/Concerns For Any Problems or Questions: Contact Your Physician Skin/Wound Care Infection Signs and Symptoms: Increased Redness, Foul Odor of Wound, Increased Drainage, Skin Itchy or Has a Rash, Increased Swelling, Temperature Above 101 F Operative Area Clean and Dry: Keep Incision Clean/Dry DIANA WOODWARD DO Feb 03, 2023 10:19
--- NOTE | 2023-02-03 10:21 | Progress Note-Pre Operative ---
Pre-Operative Progress Note Date of Available H&P: Feb 03, 2023 Date H&P Reviewed: Feb 03, 2023 Time H&P Reviewed: 09:45 History & Physical: H&P Reviewed, Patient Examed, No changes noted Pre-Operative Diagnosis: L labial cyst DIANA WOODWARD DO Feb 03, 2023 10:20
[2023-02-03] MEDS ORDERED: D5 LR IV SOLUTION 1,000 ML IV SCH (10:30)
[2023-02-03] MEDS ORDERED: KETOROLAC 30 MG/ML VIAL IVP ONE (10:30)
[2023-02-03] MEDS ORDERED: HYDROcodone/APAP 5 MG/325 MG (LORTAB) TAB PO PRN (10:30)
[2023-02-03] MEDS ORDERED: ONDANSETRON 4 MG/2 ML (SDV) Z0FRAN IVP PRN ×2 (10:30→11:15)
[2023-02-03] MEDS ORDERED: BACITRACIN OINTMENT 28 GM TUBE ONE (10:50)
[2023-02-03] MEDS ORDERED: KETOROLAC 30 MG/ML VIAL ONE (11:13)
[2023-02-03] MEDS ORDERED: morphine INJ 10 MG/ML 1ML (SYR OR VIAL) IVP ONE (11:15)
--- NOTE | 2023-02-03 13:29 | Anesthesia-General Post-Op ---
General Patient Condition Mental Status/LOC: Same as Preop Cardiovascular: Satisfactory Nausea/Vomiting: Absent Respiratory: Satisfactory Pain: Controlled Complications: Absent Post Op Complications Complications None Follow Up Care/Instructions Patient Instructions None needed. Anesthesia/Patient Condition Patient Condition Patient was doing well after the procedure with no complaints, stable vital signs, no apparent adverse anesthesia problems. No complications reported per nursing. VIANNEY LORENZO 28, 2023 13:29
--- NOTE | 2023-02-03 19:50 | OPERATIVE REPORT ---
DATE OF SERVICE: 02/03/2023 PREOPERATIVE DIAGNOSIS: A 47-year-old female with left labial minora cyst. POSTOPERATIVE DIAGNOSIS: A 47-year-old female with left labial minora cyst. PROCEDURE: Excision of left labial cyst. SURGEON: Diana Woodward DO ANESTHESIA: LMA general. ESTIMATED BLOOD LOSS: Minimal. URINE OUTPUT: 150 mL drained at the end of the procedure. FLUIDS: 400 mL lactated Ringer's solution. FINDINGS: A 1 x 1.5 cm left labial cyst. Grossly normal-appearing external female genitalia, otherwise. SPECIMEN SENT: Left labial cyst. INDICATIONS FOR PROCEDURE: This 47-year-old female, was a patient who had sought care in my office as a consultation from [facility] for ongoing issues with pain associated with a left labial cyst. She had this addressed before with incision and drainage; however, it recurred. Due to ongoing issues with pain and discomfort and pain with intercourse, the patient wished for definitive measures involving this. I discussed performing this in the office. The patient was not open to doing that due to the pain associated with the area, which had been completely excised. Risk of that was discussed with the patient in detail including risk of anesthesia, recovery timeframe and even . After everything was discussed with the patient in detail, a consent was obtained, the patient was taken to the operating room. OPERATIVE REPORT IN DETAIL: Once in the operating room, general anesthesia was administered and found to be adequate. She was placed in the dorsal lithotomy position, prepped and draped in normal sterile fashion. A timeout was performed, I began by injecting its surrounding subcutaneous tissue using 0.25% Marcaine with epinephrine. Once the appropriate infiltration of the local anesthetic, I then make a 1.5 cm incision down the margin of the cyst and it was then shelled out carefully not to rupture it intact including the cyst wall using the knife and Bovie cautery. Once it was completely excised, I then reapproximated the defect using a 4-0 Monocryl in interrupted fashion and then covered the incision line with bacitracin ointment, after which, no active bleeding noted from a dissection planes. The patient tolerated the procedure well and sent to recovery area in stable condition. Lap and sponge counts were correct at the end of the procedure. Instrument counts correct as well. Job ID: [id number] DocumentID: [id number] Dictated Date: 02/03/2023 12:37:01 Meteorological Engineer Date: 02/03/2023 19:48:00 Dictated By: DIANA WOODWARD DO
== END 2023-02-03 13:10 | disposition home or self-care (01) ==
LOC: SDC 08:58
PROVIDERS: ATTEND Obstetrics & Gynecology
DX: N90.7 Vulvar cyst (principal); E66.9 Obesity, unspecified; Z68.36 Body mass index [BMI] 36.0-36.9, adult
CPT/HCPCS: 36415; 85025; 86850; 86900; 86901; 87081; 88305

== ENCOUNTER → 2023-03-18 | Outpatient (CLI) | payer BC ==
[~2023-03-18] MED LIST changes: +ACHD5005 PO
[2023-03-18 18:21] LABS: HEMATOCRIT 42 % (35-52); HEMOGLOBIN 14.2 g/dL (11.5-16.0); MEAN CORPUSCULAR HEMOGLOBIN 31 pg (25-34); MEAN CORPUSCULAR HGB CONC 34 g/dL (32-36); MEAN CORPUSCULAR VOLUME 91 fL (80-99); MEAN PLATELET VOLUME 8.6 fL (9.0-12.2); PLATELET COUNT 288 10^3/uL (130-400); WHITE BLOOD COUNT 9.6 10^3/uL (4.3-11.0)
[2023-03-18 18:35] LABS: ALBUMIN 3.6 GM/DL (3.2-4.5)
[2023-03-18 18:36] LABS: CALCIUM 8.5 MG/DL (8.5-10.1)
[2023-03-18 18:37] LABS: TOTAL PROTEIN 6.4 GM/DL (6.4-8.2)
[2023-03-18 18:39] LABS: BILIRUBIN,TOTAL 0.3 MG/DL (0.1-1.0)
[2023-03-18 18:41] LABS: CREATININE SERUM 0.69 MG/DL (0.60-1.30)
== END ==
LOC: LAB 18:07
PROVIDERS: ATTEND Registered Nurse Critical Care Medicine
DX: N39.0 Urinary tract infection, site not specified (principal)
CPT/HCPCS: 36415; 80053; 82150; 83690; 85027; 86141